=== PATIENT | male | born 1970 | race Two or more races ===

== ENCOUNTER → 2020-08-16 08:38 | Outpatient (BNVA) | payer MEDICAID, SELFPAY | PROVIDERS: PCP Family Medicine; Referring Provider Family Medicine; Visit Provider Family Medicine | DX: I48.0 Paroxysmal atrial fibrillation (principal); Z51.81 Encounter for therapeutic drug level monitoring; Z79.01 Long term (current) use of anticoagulants | CPT/HCPCS: 85610; 99211 ==

== ENCOUNTER → 2020-09-02 09:57 | Outpatient (BNVA) | payer MEDICAID, SELFPAY | PROVIDERS: PCP Family Medicine; Visit Provider Internal Medicine | DX: I48.0 Paroxysmal atrial fibrillation (principal); Z51.81 Encounter for therapeutic drug level monitoring; Z79.01 Long term (current) use of anticoagulants | CPT/HCPCS: 85610; 99211 ==

== ENCOUNTER → 2020-10-26 08:09 | Outpatient (BNVA) | payer MEDICAID, SELFPAY | PROVIDERS: PCP Family Medicine; Referring Provider Family Medicine; Visit Provider Psychiatry & Neurology Neurology | DX: Z76.89 Persons encountering health services in other specified circumstances (principal) ==

== ENCOUNTER → 2021-01-04 09:20 | Outpatient (BNVA) | payer MEDICAID, SELFPAY | PROVIDERS: PCP Family Medicine; Visit Provider Internal Medicine | DX: I48.0 Paroxysmal atrial fibrillation (principal); Z51.81 Encounter for therapeutic drug level monitoring; Z79.01 Long term (current) use of anticoagulants | CPT/HCPCS: 85610; 99211 ==

== ENCOUNTER → 2021-01-07 08:59 | Outpatient (BNVA) | payer MEDICAID, SELFPAY | PROVIDERS: PCP Family Medicine; Visit Provider Internal Medicine | DX: I48.0 Paroxysmal atrial fibrillation (principal); Z51.81 Encounter for therapeutic drug level monitoring; Z79.01 Long term (current) use of anticoagulants | CPT/HCPCS: 85610; 99211 ==

== ENCOUNTER → 2021-01-14 08:44 | Outpatient (BNVA) | payer MEDICAID, SELFPAY | PROVIDERS: PCP Family Medicine; Visit Provider Internal Medicine | DX: I48.0 Paroxysmal atrial fibrillation (principal); Z51.81 Encounter for therapeutic drug level monitoring; Z79.01 Long term (current) use of anticoagulants | CPT/HCPCS: 85610; 99211 ==

== ENCOUNTER → 2021-02-01 13:02 | Outpatient (BNVA) | payer MEDICAID, SELFPAY | PROVIDERS: PCP Family Medicine; Visit Provider Internal Medicine | DX: I48.0 Paroxysmal atrial fibrillation (principal); Z51.81 Encounter for therapeutic drug level monitoring; Z79.01 Long term (current) use of anticoagulants | CPT/HCPCS: 85610; 99211 ==

== ENCOUNTER → 2021-02-02 10:53 | Outpatient (BNVA) | payer MEDICAID, SELFPAY | PROVIDERS: PCP Family Medicine; Visit Provider Internal Medicine Endocrinology, Diabetes & Metabolism ==

== ENCOUNTER → 2021-02-21 09:46 | Outpatient (BNVA) | payer MEDICAID, SELFPAY | PROVIDERS: PCP Family Medicine; Visit Provider Internal Medicine | DX: I48.0 Paroxysmal atrial fibrillation (principal); Z79.01 Long term (current) use of anticoagulants; Z51.81 Encounter for therapeutic drug level monitoring | CPT/HCPCS: 85610; 99211 ==

== ENCOUNTER → 2021-05-10 08:38 | Outpatient (BNVA) | payer MEDICAID, SELFPAY | PROVIDERS: PCP Family Medicine; Visit Provider Internal Medicine | DX: I48.0 Paroxysmal atrial fibrillation (principal); Z51.81 Encounter for therapeutic drug level monitoring; Z79.01 Long term (current) use of anticoagulants | CPT/HCPCS: 85610; 99211 ==

== ENCOUNTER → 2021-05-12 08:28 | Outpatient (BNVA) | payer MEDICAID, SELFPAY | PROVIDERS: PCP Family Medicine; Visit Provider Internal Medicine | DX: I48.0 Paroxysmal atrial fibrillation (principal); Z51.81 Encounter for therapeutic drug level monitoring; Z79.01 Long term (current) use of anticoagulants | CPT/HCPCS: 85610; 99211 ==

== ENCOUNTER → 2021-05-30 08:15 | Outpatient (BNVA) | payer MEDICAID, SELFPAY | PROVIDERS: PCP Family Medicine; Visit Provider Internal Medicine | DX: I48.0 Paroxysmal atrial fibrillation (principal); Z51.81 Encounter for therapeutic drug level monitoring; Z79.01 Long term (current) use of anticoagulants | CPT/HCPCS: 85610; 99211 ==

== ENCOUNTER → 2021-06-14 08:13 | Outpatient (BNVA) | payer MEDICAID, SELFPAY | PROVIDERS: PCP Family Medicine; Visit Provider Internal Medicine | DX: I48.0 Paroxysmal atrial fibrillation (principal); Z51.81 Encounter for therapeutic drug level monitoring; Z79.01 Long term (current) use of anticoagulants | CPT/HCPCS: 85610; 99211 ==

== ENCOUNTER → 2021-06-24 08:13 | Outpatient (BNVA) | payer MEDICAID, SELFPAY | PROVIDERS: PCP Family Medicine; Visit Provider Internal Medicine | DX: I48.0 Paroxysmal atrial fibrillation (principal); Z79.01 Long term (current) use of anticoagulants; Z51.81 Encounter for therapeutic drug level monitoring | CPT/HCPCS: 85610; 99211 ==

== ENCOUNTER → 2021-07-08 08:35 | Outpatient (BNVA) | payer MEDICAID, SELFPAY | PROVIDERS: PCP Family Medicine; Visit Provider Internal Medicine ==

== ENCOUNTER → 2021-08-23 08:51 | Outpatient (BNVA) | payer MEDICAID, SELFPAY | PROVIDERS: PCP Family Medicine; Visit Provider Internal Medicine | DX: I48.0 Paroxysmal atrial fibrillation (principal); Z51.81 Encounter for therapeutic drug level monitoring; Z79.01 Long term (current) use of anticoagulants | CPT/HCPCS: 85610; 99211 ==

== ENCOUNTER → 2021-09-19 08:15 | Outpatient (BNVA) | payer MEDICAID, SELFPAY | PROVIDERS: PCP Family Medicine; Visit Provider Nurse Practitioner Gerontology | DX: E11.42 Type 2 diabetes mellitus with diabetic polyneuropathy (principal); E55.9 Vitamin D deficiency, unspecified; E78.5 Hyperlipidemia, unspecified; E03.9 Hypothyroidism, unspecified; I10 Essential (primary) hypertension | CPT/HCPCS: 82947; 99212 ==

== ENCOUNTER → 2021-09-20 08:35 | Outpatient (BNVA) | payer MEDICAID, SELFPAY | PROVIDERS: PCP Family Medicine; Visit Provider Internal Medicine | DX: I48.0 Paroxysmal atrial fibrillation (principal); Z51.81 Encounter for therapeutic drug level monitoring; Z79.01 Long term (current) use of anticoagulants | CPT/HCPCS: 85610; 99211 ==

== ENCOUNTER → 2021-09-27 09:13 | Outpatient (BNVA) | payer MEDICAID, SELFPAY | PROVIDERS: PCP Family Medicine; Visit Provider Internal Medicine ==

== ENCOUNTER → 2021-10-24 21:39 | Outpatient (REF) | payer MEDICAID, SELFPAY | LOC: HO.SL 21:39 | PROVIDERS: Visit Provider Family Medicine | DX: G47.33 Obstructive sleep apnea (adult) (pediatric) (principal) | CPT/HCPCS: 85610; 95810; 95811; 99211 ==

== ENCOUNTER → 2021-12-05 08:20 | Outpatient (BNVA) | payer MEDICAID, SELFPAY | PROVIDERS: PCP Family Medicine; Visit Provider Internal Medicine | DX: I48.0 Paroxysmal atrial fibrillation (principal); Z51.81 Encounter for therapeutic drug level monitoring; Z79.01 Long term (current) use of anticoagulants | CPT/HCPCS: 85610; 99211 ==

== ENCOUNTER → 2022-01-09 08:23 | Outpatient (BNVA) | payer MEDICAID, SELFPAY | PROVIDERS: PCP Family Medicine; Visit Provider Internal Medicine | DX: I48.0 Paroxysmal atrial fibrillation (principal); Z51.81 Encounter for therapeutic drug level monitoring; Z79.01 Long term (current) use of anticoagulants | CPT/HCPCS: 85610; 99211 ==

== ENCOUNTER 2022-01-12 08:20 | Outpatient (REF) | payer MEDICAID, SELFPAY | END 2022-01-12 08:21 | disposition home or self-care (01) | LOC: HO.LAB 08:20 | PROVIDERS: Absent Provider Nurse Practitioner Gerontology; PCP Family Medicine; Visit Provider Internal Medicine | DX: I48.0 Paroxysmal atrial fibrillation (principal); E55.9 Vitamin D deficiency, unspecified; Z51.81 Encounter for therapeutic drug level monitoring; Z79.01 Long term (current) use of anticoagulants | CPT/HCPCS: 36415; 82306; 85610; 99211 ==

== ENCOUNTER → 2022-01-26 08:24 | Outpatient (BNVA) | payer MEDICAID, SELFPAY | PROVIDERS: PCP Family Medicine; Visit Provider Internal Medicine | DX: I48.0 Paroxysmal atrial fibrillation (principal); Z51.81 Encounter for therapeutic drug level monitoring; Z79.01 Long term (current) use of anticoagulants | CPT/HCPCS: 85610; 99211 ==

== ENCOUNTER → 2022-02-02 08:28 | Outpatient (BNVA) | payer MEDICAID, SELFPAY | PROVIDERS: PCP Family Medicine; Visit Provider Internal Medicine | DX: I48.0 Paroxysmal atrial fibrillation (principal); Z51.81 Encounter for therapeutic drug level monitoring; Z79.01 Long term (current) use of anticoagulants | CPT/HCPCS: 85610; 99211 ==

== ENCOUNTER → 2022-02-15 08:16 | Outpatient (BNVA) | payer MEDICAID, SELFPAY | PROVIDERS: PCP Family Medicine; Visit Provider Internal Medicine | DX: I48.0 Paroxysmal atrial fibrillation (principal); Z51.81 Encounter for therapeutic drug level monitoring; Z79.01 Long term (current) use of anticoagulants | CPT/HCPCS: 85610; 99211 ==

== ENCOUNTER 2022-03-23 10:15 | Outpatient (REF) | payer MEDICAID, SELFPAY ==
--- NOTE | ~2022-03-23 | XR_ITS ---
EXAMINATION: XR FOOT, LEFT CLINICAL INFORMATION: Pain COMPARISON: Left foot x-rays 07/23/2014 TECHNIQUE: AP, lateral, and oblique views of the left foot. FINDINGS: Partially visualized hardware of the distal tibia. Bones of the midfoot are well aligned. Mild degenerative changes of the midfoot. No tarsal fracture. No metatarsal or phalangeal fracture. Mild degenerative changes of the first MTP joint with mild degenerative changes of scattered IP joints. No focal soft tissue swelling. No radiopaque foreign body. Small plantar calcaneal enthesophytes. No gross ankle joint effusion. XR/XR foot LT min 3V IMPRESSION: Mild diffuse degenerative changes of the foot. No fracture.
== END 2022-03-23 10:16 | disposition home or self-care (01) ==
LOC: HO.XRAY 10:15
PROVIDERS: Absent Provider Family Medicine; PCP Family Medicine; Visit Provider Dentist Pediatric Dentistry
DX: I48.0 Paroxysmal atrial fibrillation (principal); M79.672 Pain in left foot; Z51.81 Encounter for therapeutic drug level monitoring; Z79.01 Long term (current) use of anticoagulants
CPT/HCPCS: 73630; 85610; 99211

== ENCOUNTER → 2022-04-06 08:12 | Outpatient (BNVA) | payer MEDICAID, SELFPAY | PROVIDERS: PCP Family Medicine; Visit Provider Internal Medicine | DX: I48.0 Paroxysmal atrial fibrillation (principal); Z79.01 Long term (current) use of anticoagulants; Z51.81 Encounter for therapeutic drug level monitoring | CPT/HCPCS: 85610; 99211 ==

== ENCOUNTER 2022-06-27 08:15 | Outpatient (REF) | payer MEDICAID, SELFPAY ==
[2022-06-27 08:48] LABS: INTERNATIONAL NORM RATIO 2.5 (0.9-1.1); Prothrombin Time 29.3 SEC (10.0-13.1)
== END 2022-06-27 08:16 | disposition home or self-care (01) ==
LOC: HO.LABR 08:15
PROVIDERS: PCP Family Medicine; Visit Provider Family Medicine
DX: I48.91 Unspecified atrial fibrillation (principal)
CPT/HCPCS: 36415; 85610

== ENCOUNTER 2023-08-17 02:35 | Emergency (ER) | payer OTHER, SELFPAY ==
[2023-08-17 02:37] VITALS: BP 125/85; PULSE 85; RESP 20; TEMP 36.6; O2SAT 96; BMI 47.2
--- NOTE | 2023-08-17 03:23 | ED.GENADULT ---
HPI - General Adult General Chief complaint: General Medical Stated complaint: ?Constipated Time Seen by Provider: 08/17/23 02:56 Source: patient Mode of arrival: ambulatory Limitations: no limitations History of Present Illness HPI narrative: Patient constipated for last 1 week with small amount of stool, feels something stuck in the rectal no nausea no vomiting patient moving small amount of bowels and passing gas history of constipation off and on not on any narcotic Related Data Home Medications Medication Instructions Recorded Confirmed alcohol swabs (Alcohol Prep Pads) pad topical diabetes mellitus 06/24/21 01/09/22 lisinopril 20 mg tablet 20 mg PO DAILY 06/24/21 02/02/22 omeprazole 20 mg capsule,delayed 20 mg PO DAILY 06/24/21 02/02/22 release lancets 28 gauge (FreeStyle #100 ea 09/19/21 01/09/22 Lancets) Previous Rx's Medication Instructions Recorded warfarin 5 mg tablet 5 mg PO DAILY #90 tabs 08/16/20 levothyroxine 150 mcg tablet 150 mcg PO DAILY #30 tabs 12/20/20 atorvastatin 40 mg tablet 40 mg PO BEDTIME #30 tabs 09/19/21 blood-glucose meter (FreeStyle #1 ea 10/10/21 [place] Lite kit) blood sugar diagnostic (FreeStyle #100 ea 12/22/21 Lite Strips) cholecalciferol (vitamin D3) 50 50 mcg PO DAILY #30 caps 02/09/22 mcg (2,000 unit) capsule lancets 33 gauge (TRUEplus Lancets) #100 ea 04/24/22 empagliflozin 10 mg tablet 10 mg PO QAM #30 tabs 05/02/22 (Jardiance) metformin 500 mg tablet,extended 2,000 mg (4 x 500 mg) PO QPM 30 05/02/22 release 24 hr days #120 tabs bisacodyl 5 mg tablet,delayed 10 mg (2 x 5 mg) PO BEDTIME PRN 08/17/23 release (Dulcolax (bisacodyl)) constipation #30 tabs polyethylene glycol 3350 17 17 g PO DAILY PRN constipation 08/17/23 gram/dose oral powder (Miralax) #510 grams Allergies Allergy/AdvReac Type Severity Reaction Status Date / Time penicillin V Allergy Unknown rash Verified 08/17/23 02:40 Penicillins Allergy Unknown UNKNOWN Verified 08/17/23 02:40 Review of Systems Review of Systems: Yes all other systems are reviewed and are negative [facility] Past Medical History Medical History DM2 (diabetes mellitus, type 2) Diabetes type 2, controlled Vitamin D deficiency Acquired hypothyroidism Hepatitis B Surgical History Status post left foot surgery Family History Family History Father Cancer Mother Diabetes mellitus FH: mental illness Depression Hypertension Paternal Grandfather Diabetes mellitus Maternal Grandmother Diabetes mellitus Social History Social History Alcohol intake: current Alcohol intake frequency: holidays/special occasions only Patient Tobacco Use Status: Never used Tobacco Advance Directives: No Advance Directives Information Provided: Yes Physical Exam ED Vital Signs: Vital Signs - 24 hr 08/17/23 02:37 08/17/23 03:28 Temperature 97.9 F 97.8 F Pulse Rate 85 92 Respiratory Rate 20 Blood Pressure 125/85 141/89 H Pulse Oximetry 96 94 Oxygen Delivery Method Room Air Room Air BMI result Body Mass Index 47.2 Appearance: Alert. Oriented X3. No acute distress. ENT: Pharynx normal. Oral Mucosa moist Neck: Normal inspection. Neck supple. CVS: Normal heart rate and rhythm. Pulses normal. Respiratory: No respiratory distress. Equal air entry bilateral, Abdomen: Soft and nontender. Bowel sounds are present, no mass palpable, no CVA tenderness rectal: No stool felt in the rectum no foreign body Skin: Skin warm and dry. Normal skin color. Normal skin turgor. Neuro: Oriented X 3. Medications Administered Discontinued Medications Generic Name Dose Route Start Last Admin Trade Name Freq PRN Reason Stop Dose Admin Bisacodyl 10 mg 08/17/23 02:56 08/17/23 04:02 Bisacodyl 5 Mg Tablet.Dr PO 08/17/23 02:57 10 mg ONCE ONE Administration Magnesium Hydroxide 30 ml 08/17/23 02:56 08/17/23 04:03 Milk Of Magnesia 30 Ml Oral.Susp PO 08/17/23 02:57 30 ml ONCE ONE Administration Medical Decision Making Medical Decision Making MDM Narrative: KUB showed moderate amount of stool no signs of small-bowel obstruction discharge patient home on MiraLax and Dulcolax Differential Diagnosis Differential Diagnoses: The differential diagnosis associated with the presentation includes Fecal impaction/SBO Radiology Impression Discussion of test interpretation with radiology: I have reviewed the radiologist's reading. Discharge Plan Discharge Clinical Impression: Constipation Patient Disposition: Home, Self-Care Instructions: Constipation (ED) Additional Instructions: Drink plenty of fluids Stool softener as advised Follow with PCP as needed Prescriptions: New polyethylene glycol 3350 [Miralax] 17 gram/dose powder 17 g PO DAILY PRN (Reason: constipation) Qty: 510 0RF bisacodyl [Dulcolax (bisacodyl)] 5 mg tablet,delayed release (DR/EC) 10 mg PO BEDTIME PRN (Reason: constipation) Qty: 30 0RF No Action levothyroxine 150 mcg tablet 150 mcg PO DAILY Qty: 30 5RF (DME) blood-glucose meter [FreeStyle [place] Lite] Kit See Rx Instructions .ROUTE .MEDSUPPLY Qty: 1 0RF Rx Instructions: As directed 3x/day (DME) FreeStyle Lite Strips Strip See Rx Instructions .ROUTE .MEDSUPPLY Qty: 100 11RF Rx Instructions: 2 times a day cholecalciferol (vitamin D3) 50 mcg (2,000 unit) capsule 50 mcg PO DAILY Qty: 30 4RF (DME) lancets [TRUEplus Lancets] 33 gauge misc See Rx Instructions Not Applicable TID Qty: 100 11RF Rx Instructions: As directed twice a day metformin 500 mg tablet extended release 24 hr 2,000 mg PO QPM 30 Days Qty: 120 3RF Jardiance 10 mg tablet 10 mg PO QAM Qty: 30 3RF atorvastatin 40 mg tablet 40 mg PO BEDTIME Qty: 30 11RF warfarin 5 mg tablet 5 mg PO DAILY Qty: 90 0RF Protocol: Dose Management Condition: Sunday (Week One) Dose/Route: 10 mg Instruction: 2 x 5 mg tablets Condition: Sunday Dose/Route: 7.5 mg Instruction: 1.5 x 5 mg tablets Condition: Sunday Dose/Route: 7.5 mg Instruction: 1.5 x 5 mg tablets Condition: Sunday Dose/Route: 10 mg Instruction: 2 x 5 mg tablets Condition: Dose/Route: 2.5 mg Instruction: 0.5 x 5 mg tablets Condition: Sunday Dose/Route: 7.5 mg Instruction: 1.5 x 5 mg tablets Condition: Sunday Dose/Route: 7.5 mg Instruction: 1.5 x 5 mg tablets Condition: Sunday (Week Two) Dose/Route: 10 mg Instruction: 2 x 5 mg tablets Condition: Sunday Dose/Route: 7.5 mg Instruction: 1.5 x 5 mg tablets Condition: Sunday Dose/Route: 7.5 mg Instruction: 1.5 x 5 mg tablets Condition: Sunday Dose/Route: 7.5 mg Instruction: 1.5 x 5 mg tablets Condition: Dose/Route: 7.5 mg Instruction: 1.5 x 5 mg tablets Condition: Sunday Dose/Route: 7.5 mg Instruction: 1.5 x 5 mg tablets Condition: Sunday Dose/Route: 7.5 mg Instruction: 1.5 x 5 mg tablets Protocol Text: Adjustment Start Date: 04/06/22 INR Value: 3.6 INR Date: 04/06/22 Recheck Date: 04/20/22 Additional Instructions: take 2.5mg today then reduce weekly dose eat greens to lower inr no red fruit/orange veg for 2 days (DME) lancets [FreeStyle Lancets] 28 gauge misc See Rx Instructions .ROUTE .MEDSUPPLY Qty: 100 Rx Instructions: As directed 2 times a day alcohol swabs [Alcohol Prep Pads] Pads, Medicated topical omeprazole 20 mg capsule,delayed release(DR/EC) 20 mg PO DAILY lisinopril 20 mg tablet 20 mg PO DAILY Interventions: ED Discharge Assessment Last Done: 08/17/23 04:10 Discharge Date/Time: 08/17/23 04:10
[2023-08-17 03:28] VITALS: BP 141/89; PULSE 92; TEMP 36.6; O2SAT 94
== END 2023-08-17 04:10 | disposition home or self-care (01) ==
PROVIDERS: Emergency Provider Internal Medicine; PCP Family Medicine
DX: K59.00 Constipation, unspecified (principal); E11.9 Type 2 diabetes mellitus without complications; I10 Essential (primary) hypertension; E78.5 Hyperlipidemia, unspecified; I48.91 Unspecified atrial fibrillation; K76.0 Fatty (change of) liver, not elsewhere classified; Z79.01 Long term (current) use of anticoagulants; Z79.899 Other long term (current) drug therapy; Z79.84 Long term (current) use of oral hypoglycemic drugs
CPT/HCPCS: 74018; 99283; 99284

== ENCOUNTER 2024-04-14 08:27 | Outpatient (REF) | payer SELFPAY ==
[2024-04-14 12:04] LABS: Alanine Aminotransferase 15 U/L (0-40); Albumin Level 3.9 g/dL (3.5-5.0); Alkaline Phosphatase 113 U/L (39-117); Anion Gap 11 (12-20); Aspartate Amino Transferase 11 U/L (5-37); Bilirubin Direct 0.1 mg/dL (0.0-0.5); Bilirubin Total 0.3 mg/dL (0.0-1.0); Blood Urea Nitrogen 11 mg/dL (9-16); Calcium 9.5 mg/dL (8.4-10.2); Carbon Dioxide 28 mmol/L (22-29); Chloride 104 mmol/L (96-108); Cholesterol 138 mg/dL (<200); Estimated Glomerular Filt Rate > 60; Glucose Random 215 mg/dL (60-115); HDL Cholesterol 40 mg/dL (>40); LDL Cholesterol Calculated 74 mg/dL (<100); Potassium 4.2 mmol/L (3.3-5.1); Sodium 139 mmol/L (135-145); Total Protein 7.8 g/dL (6.5-8.0); Triglycerides 121 mg/dL (<150)
[2024-04-14 12:18] LABS: Creatinine Urine 86.13 mg/dL; Microalbum/Creatinine Ratio Ur 104.4 ug/mg cr (<30)
== END 2024-04-14 08:28 | disposition home or self-care (01) ==
LOC: HO.HHCL 08:27
PROVIDERS: Visit Provider Family Medicine
DX: E11.9 Type 2 diabetes mellitus without complications (principal); Z79.4 Long term (current) use of insulin; I10 Essential (primary) hypertension
CPT/HCPCS: 36415; 80048; 80061; 80076; 82043; 82570

== ENCOUNTER 2024-11-27 08:54 | Outpatient (REF) | payer SELFPAY ==
[2024-11-27 11:47] LABS: Creatinine Urine 62.63 mg/dL; Microalbum/Creatinine Ratio Ur 76.6 ug/mg cr (<30)
== END 2024-11-27 08:55 | disposition home or self-care (01) ==
LOC: HO.HHCL 08:54
PROVIDERS: Visit Provider Family Medicine
DX: E11.9 Type 2 diabetes mellitus without complications (principal)
CPT/HCPCS: 82043; 82570

== ENCOUNTER 2025-06-22 15:20 | Emergency (ER) | payer OTHER, SELFPAY ==
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
[2025-06-22 15:35] VITALS: BP 134/77; PULSE 74; RESP 18; TEMP 36.5; O2SAT 96; BMI 47.0
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
--- OUTSIDE RECORDS SUMMARY | 2025-06-22 19:34 | XMS_ITS | Clinical Summary ---
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 hemoglobin (Hgb A1c) (12/22/2024 1:47 PM EST) Hemoglobin A1C 15.0(A) 4.0 - 6.0 % QC Media Lot # [id number] Lot# Expiration Date ,02 6 Blood Capillary blood specimen / Unknown 12/22/2024 1:47 PM EST Shannan Tariq MD POINT OF CARE TEST ENTER/E DIT ORDERABLES Final Result * (ABNORMAL) Albumin, Random Urine W/Creatinine (11/27/2024 8:56 AM EST) Creatinine, Urine 62.63 mg/dL [facility] Microalbumin Urine 48.0 mg/L [facility] Microalbum Creatinine Ratio Ur 76.6(H) <30 ug/mg cr [facility] Comment:Albumin/Creatinine R atio Reference Ranges: Normal: < 30 ug/mg creatinine Microalbuminuria: 30 - 300 ug/mg creatinineClinical Albuminuria: > 300 ug/mg creatinine 11/27/2024 8:56 AM EST 11/27/2024 11:09 AM EST Shannan Tariq MD LAB URINE ORDERABLES Final Result [facility] [address] [place] [address] [phone] * (ABNORMAL) Lipid Panel, Standard (04/14/2024 8:28 AM EDT) Triglycerides 121 <150 mg/dL [facility] Comment:Desirable Triglyceri de: less than 150 mg/dLBorderline High Triglyceride 150-199 mg/dLHigh Triglyceride: 200-499 mg/dLVery High Triglyceride: greater than or equal to 5OO mg/dL Cholesterol 138 <200 mg/dL [facility] Comment:Desirable Cholestero l: less than 200 mg/dLBorderline High Cholesterol: 200-239 mg/dLHigh Cholesterol: greater than 239 mg/dL LDL Cholesterol Calculated 74 <100 mg/dL [facility] Comment:Desirable LDL: less than 100 mg/dLNear Optimal/Above Optimal LDL: 110- 129 mg/dLBorderline High LDL: 130-159 mg/dLHigh LDL: 160-189 mg/dLVery High LDL: greater than or equal to 190 mg/dL HDL Cholesterol 40(L) >40 mg/dL [facility] Comment:Desirable HDL: great er than 40 mg/dL Note: This HDL assay may give artificially low results in patients with liver disease. 04/14/2024 8:28 AM EDT 04/14/2024 11:16 AM EDT Shannan Tariq MD LAB BLOOD ORDERABLES Final Result Performing Organization Address City/[facility]/ZIP Co de Phone Number [facility] [address] [place] [phone] * Hepatitis C Antibody with Reflex to HCV, RNA, Quantitative, Real-Time PCR (01/03/2023 8:20 AM EST) Hepatitis C Antibody NON-REACT JASON NON-REACT JASON [facility] [place] Index 0.16 <1.00 [facility] [place] [facility] Comment: HCV antibody was non-reactive. There is no laboratory evidence of HCV infection. In most cases, no further action is required. However, if recent HCV exposure is suspected, a test for HCV RNA (test code 32208) is suggested. For additional information please refer to http://education.[employer]/faq/BFM43s1 (This link is being provided for informational/ educational purposes only.) Blood Venous blood specimen / Unknown 01/03/2023 8:20 AM EST 01/03/2023 8:22 AM EST Narrative [facility] - 01/04/2023 4:02 PM EST FASTING:YES FASTING: YES Shannan Tariq MD LAB BLOOD ORDERABLES Final Result Performing Organization Address City/[facility]/ZIP Co de Phone Number [facility] [address] [place] [address], [place] [address] [facility] [place] [facility] [address] [facility], ([address]) [place] [address] * HIV-1/2 Antigen and Antibodies, Fourth Generation, with Reflexes (01/03/2023 8:20 AM EST) Pathologist [facility] HIV Antigen/Antibody, 4th Generation NON-REAC TIVE NON-REAC TIVE [facility] [place] [facility] Comment: HIV-1 antigen and HIV-1/HIV-2 antibodies were not detected. There is no laboratory evidence of HIV infection. PLEASE NOTE: This information has been disclosed to you from records whose confidentiality may be protected by state law. If your state requires such protection, then the state law prohibits you from making any further disclosure of the information without the specific written consent of the person to whom it pertains, or as otherwise permitted by law. A general authorization for the release of medical or other information is NOT sufficient for this purpose. For additional information please refer to http://education.Quintura/faq/ROE626 (This link is being provided for informational/ educational purposes only.) The performance of this assay has not been clinically validated in patients less than 2 years old. Blood Venous blood specimen / Unknown 01/03/2023 8:20 AM EST 01/03/2023 8:22 AM EST Narrative [facility] - 01/04/2023 4:02 PM EST FASTING:YES FASTING: YES Shannan Tariq MD LAB BLOOD ORDERABLES Final Result [facility] [address], [place] [address] [facility] [place] [employer] [facility] [address] [facility], ([address]) [place] [address] from Last 3 Months or Most Recently Relevant to Health Maintenance Insurance [facility] Advance Directives Documents on File Type Date Recorded Patient All Around Patternmaker Expl anation Advance Directives and Living Will 03/05/2024 Health Care Proxy 03/05/24 Care Teams Prenatal Genetic Counselor Relationship Specialty Start Date End Date [place], MD Shannan [address] [place] [address] PCP - General Family Medicine 11/12/18 Isabel Constantino PharmD [address] [place] [address] Pharmacist Internal Medicine 10/19/22
[2025-06-22 19:46] VITALS: BP 114/69; PULSE 88; RESP 20; TEMP 35.9; O2SAT 95
[2025-06-22 20:31] VITALS: BP 114/69; PULSE 88; RESP 20; TEMP 35.9; O2SAT 95
== END 2025-06-22 20:31 | disposition home or self-care (01) ==
PROVIDERS: Emergency Provider Internal Medicine; PCP Family Medicine
DX: M25.512 Pain in left shoulder (principal); M54.50 Low back pain, unspecified; R51.9 Headache, unspecified; M54.2 Cervicalgia; I10 Essential (primary) hypertension; M77.8 Other enthesopathies, not elsewhere classified; V49.88XA Car occupant (driver) (passenger) injured in other specified transport accidents, initial encounter; Y93.89 Activity, other specified; Y92.488 Other paved roadways as the place of occurrence of the external cause; Y99.8 Other external cause status; Z79.899 Other long term (current) drug therapy
CPT/HCPCS: 70450; 72100; 72125; 73030; 99283; 99284

== ENCOUNTER → 2025-06-22 15:39 | Outpatient (BNV) | payer SELFPAY | PROVIDERS: Visit Provider Radiology Diagnostic Radiology | DX: M50.30 Other cervical disc degeneration, unspecified cervical region (principal); R51.9 Headache, unspecified; M54.50 Low back pain, unspecified; M25.512 Pain in left shoulder | CPT/HCPCS: 70450; 72100; 72125; 73030 ==

== ENCOUNTER 2025-07-21 11:53 | Outpatient (REF) | payer OTHER, SELFPAY ==
[2025-07-21 13:09] LABS: MANUAL DIFF FLAG NO
[2025-07-21 13:25] LABS: Hematocrit 43.4 % (42.0-52.0); Hemoglobin 14.2 g/dl (14.0-18.0); Imm Gran Abs Auto 0.07 X10*3/uL (0.00-0.03); Imm Gran Pct Auto 0.8 % (0.0-0.4); Lymphocytes Absolute Auto 2.7 X10*3/uL (1.2-4.9); Mean Corpuscular HGB Conc 32.7 g/dl (31.0-36.0); Mean Corpuscular Hemoglobin 26.3 pg (27.0-33.0); Mean Corpuscular Volume 80.5 fL (80.0-98.0); NRBC Abs Auto 0.000 X10*3/uL (0.0-0.012); NRBC Pct Auto 0.0 /100WBC (0.0-0.2); Platelet Count 287 X10*3/uL (160-400); Red Blood Count 5.39 X10*6/uL (4.60-5.80); White Blood Count 9.1 X10*3/uL (4.8-10.8)
[2025-07-21 13:26] LABS: Hemoglobin A1C 637.6372 umol/L; Total Hemoglobin (HGBA1C) 3670.9535 umol/L
[2025-07-21 13:59] LABS: Microalbum/Creatinine Ratio Ur 55.6 ug/mg cr (<30)
[2025-07-21 14:06] LABS: Alanine Aminotransferase 31 U/L (0-40); Albumin Level 4.1 g/dL (3.5-5.0); Alkaline Phosphatase 167 U/L (39-117); Anion Gap 12 (12-20); Aspartate Amino Transferase 33 U/L (5-37); Blood Urea Nitrogen 11 mg/dL (9-16); Calcium 8.8 mg/dL (8.4-10.2); Carbon Dioxide 26 mmol/L (22-29); Chloride 100 mmol/L (96-108); Cholesterol 156 mg/dL (<200); Estimated Glomerular Filt Rate > 60; HDL Cholesterol 38 mg/dL (>40); Potassium 4.0 mmol/L (3.3-5.1); Sodium 134 mmol/L (135-145); Total Protein 7.5 g/dL (6.5-8.0); Triglycerides 270 mg/dL (<150)
--- OUTSIDE RECORDS SUMMARY | 2025-07-21 14:23 | XMS_ITS | Encounter Summary ---
Author Organization [employer] Address [address] [facility] [address] [place] [address] Care Team Providers Care Connie Scratcher Name Role Phone Shannan Tariq MD Primary Care Provider [phone]- [phone] Isabel Constantino PharmD Unavailable [phone] Encounter Details Date Type Department Care Team ([facility] st Contact Info) Description 12/07/2023 Telephone [facility] MEDICINE [address] [place], [place] [phone] Shannan Tariq MD [address] [place], [place] [phone] Social History Tobacco Use Types Packs/Day Years Used Date Smoking Tobacco: Never Smokeless Tobacco: Current Depression Answer Date Recorded Patient Health Questionnaire-9 Score 0 12/25/2022 Housing Stability Answer Date Recorded What is your housing situation today? I have cl tee 08/29/[address] you li ve. Do you have problems with any of the following? None of the above 08/29/2023 Food Insecurity Answer Date Recorded Within the past 12 months, y ou worried that your food would run out before you got money to buy more: Never True 08/29/2023 Within the past 12 months,th e food you bought just didn't last and you didn't have enough money to get more: Never True Transportation Answer Date Recorded In the past 12 months, has l ack of transportation kept you from medical appts, meetings, work or from getting things needed for daily living? No 08/29/2023 Utilities Answer Date Recorded In the past 12 months, has t he electric, gas, oil or water company threatened to shut off services in your home? No 08/29/2023 Depression Answer Date Recorded Patient Health Questionnaire-2 Score 0 12/25/2022 Sex and Gender Information Value Date Recorded Sex Assigned at Male 09/11/2022 10:15 AM EDT Legal Sex Male 10:15 AM EDT Gender Identity Male 09/11/2022 10:15 AM EDT Sexual Orientation Straight 09/11/2022 10 :15 AM EDT documented as of this encounter Plan of Treatment Not on file documented as of this encounter Goals Goal Patient Goal Type Associated Problems Recent Progress Patient-Stated? Author Hemoglobin A1c < 7 Result Component 15(07/21/2025 12:02 PM EDT) No Isabel Constantino, PharmD documented as of this encounter Visit Diagnoses Not on filedocumented in this encounter Additional Health Concerns Assessment Noted Time PHQ-9 Depression Total Score: 0 12/25/19 23 10:28 AM EST documented as of this encounter Care Teams Connie Scratcher Relationship Specialty Start Date End Date Shannan Tariq MD [address] [place] [address] PCP - General Family Medicine 11/12/18 Isabel Constantino, PharmD [address] [place] [phone] Pharmacist Internal Medicine 10/19/22 documented as of this encounter
--- OUTSIDE RECORDS SUMMARY | 2025-07-21 14:23 | XMS_ITS | Clinical Summary ---
Author Organization [facility] Address [address] [place] [address] Phone Care Team Providers Care Statistical Technician Name Role Phone Shannan Tariq MD Primary Care Provider [phone] Allergies Active Allergy Reactions Criticality Noted Date Comments Penicillin Unknown Low 03/06/2025 Medications No known medications Active Problems No known active problems Medical History Medical History Date Comments Diabetes mellitus ([facility] [place], [facility]28) Hypertension HLD (hyperlipidemia) A-fib ([facility] [place], [facility] V28) Social History Tobacco Use Types Packs/Day Years Used Date Smoking Tobacco: Never Assessed Sex and Gender Information Value Date Recorded Sex Assigned at Male 03/06/2025 12:55 PM EDT Legal Sex Male 6:18 PM EST Gender Identity Male 03/06/2025 12:55 PM EDT Sexual Orientation Not on file Obstetrics History Last Filed Vital Signs Vital Sign Reading Time Taken Comments Blood Pressure 123/84 03/06/2025 2:48 PM EDT Pulse 65 03/06/2025 2:48 PM EDT Temperature 36.9 C (98.5 F) 03/06/2025 2:47 PM EDT Respiratory Rate 16 03/06/2025 2:47 PM EDT Oxygen Saturation 98% 03/06/2025 3:40 PM EDT Inhaled Oxygen Concentration - - Weight 141 kg (310 lb) 03/06/2025 6:11 AM EDT Height 188 cm (6' 2 ) 03/06/2025 6:11 AM EDT Body Mass Index 39.8 03/06/2025 6:11 AM EDT Plan of Treatment Health Maintenance Due Date Last Done Comments Zoster Vaccines (1 of 2) 2022 Colorectal Cancer Screening: Colonoscopy 10/25/2022 Social Influencers of Health Screening 10/25/2022 Depression Screening 11/12/2024 COVID-19 Vaccine ( season) 2025 03/05/2024, 01/27/2022, 09/05/2021, Additional history exists Influenza Vaccine (#1) 2025 , 09/20/2015, 11/02/2014, Additional history exists Hypertension/CHF/CAD Annual BMP Blood Test 03/06/2026 03/06/2025 Cholesterol Screening (Lipid Panel) 04/14/2029 04/14/2024 DTaP,Tdap,and Td Vaccines (5 - Td or Tdap) 12/22/2034 12/22/2024, 11/02/2014, 09/08/2013, Additional history exists Hepatitis B Vaccines Completed 11/02/2014, 07/05/2007, 03/13/2007 [...] on patient's age to complete this topic MMR Vaccines Aged Out No longer eligi ble based on patient's age to complete this topic Meningococcal ACWY Vaccine Aged Out N o longer eligible based on patient's age to complete this topic Meningococcal B Vaccine Aged Out No l onger eligible based on patient's age to complete this topic RSV Immunization Patients Under 20 months Aged Out No longer eligible based on patient's age to complete this topic Varicella Vaccines Aged Out No longer eligible based on patient's age to complete this topic Procedures Procedure Name Priority Date/Time Associated Diagnosis Comments COMPREHENSIVE METABOLIC PANEL STAT 03/06/2025 6:30 AM EDT from Last 3 Months or Most Recently Relevant to Health Maintenance Results * (ABNORMAL) Comprehensive metabolic panel (03/06/2025 6:30 AM EDT) Sodium 134 133 - 145 mmol/L LAB CHEMISTRY METHOD 03/06/2025 8:03 AM [facility] Potassium 4.5 3.5 - 5.5 mmol/L LAB CHEMISTRY METHOD 03/06/2025 8:03 AM [facility] Comment:Hemolysis present Chloride 102 96 - 110 mmol/L LAB CHEMISTRY METHOD 03/06/2025 8:03 AM [facility] CO2 28 21 - 32 mmol/L LAB CHEMISTRY METHOD 03/06/2025 8:03 AM [facility] Anion Gap 4 3 - 11 LAB CHEMISTRY METHOD 03/06/2025 8:03 AM [facility] Glucose 235(H) 70 - 100 mg/dL LAB CHEMISTRY METHOD 03/06/2025 8:03 AM [facility] BUN 11 5 - 25 mg/dL LAB CHEMISTRY METHOD 03/06/2025 8:03 AM [facility] Creatinine 0.68(L) 0.70 - 1.30 mg/dL LAB CHEMISTRY METHOD 03/06/2025 8:03 AM [facility] eGFR 112 >=60 mL/min/1. 73m2 LAB CHEMISTRY METHOD 03/06/2025 8:03 AM [facility] Comment:Calculation based on the Chronic Kidney Disease Epidemiology Collaboration (CKD-EPI) equation refit without adjustment for race. BUN/Creatinine Ratio 16.2 LAB CHEMISTRY METHOD 03/06/2025 8:03 AM [facility] Calcium 9.1 8.5 - 10.5 mg/dL LAB CHEMISTRY METHOD 03/06/2025 8:03 AM [facility] AST (SGOT) 25 10 - 42 unit/L LAB CHEMISTRY METHOD 03/06/2025 8:03 AM [facility] Comment:Hemolysis present ALT (SGPT) 44 10 - 60 unit/L LAB CHEMISTRY METHOD 03/06/2025 8:03 AM EDT [facility] Alkaline Phosphatase 151(H) 42 - 121 unit/L LAB CHEMISTRY METHOD 03/06/2025 8:03 AM EDT [facility] Total Protein 7.8 6.0 - 8.0 g/dL LAB CHEMISTRY METHOD 03/06/2025 8:03 AM EDT [facility] Albumin 3.4 3.2 - 5.0 g/dL LAB CHEMISTRY METHOD 03/06/2025 8:03 AM EDT [facility] Total Bilirubin 0.3 0.0 - 1.4 mg/dL LAB CHEMISTRY METHOD 03/06/2025 8:03 AM EDT [facility] Blood Venous blood specimen / Unknown Venipuncture / Unknown 03/06/2025 6:30 AM EDT 03/06/2025 7:05 AM EDT Cori Matt MD LAB BLOOD ORDERABLES Fin al Result [facility] [address] [place] [address], from Last 3 Months or Most Recently Relevant to Health Maintenance Insurance MEDICAID - [place] Care Teams Statistical Technician Relationship Specialty Start Date End Date [place], [place] Shannan [address] [place] [phone] PCP - General Family Medicine 03/06/25
--- OUTSIDE RECORDS SUMMARY | 2025-07-21 14:23 | XMS_ITS | Clinical Summary ---
Author Organization [employer] Address [address] [facility] [address] [place] [address] Care Team Providers Care Loan Approver Name Role Phone Shannan Tariq MD Primary Care Provider [phone] Isabel Constantino PharmD Unavailable [phone] Allergies Active Allergy Reactions Criticality Noted Date Comments Penicillins Hives 05/14/2013 PT REPORTS HIVES WITH PCN USE Medications * This document contains information received from the source organization and may not represent a complete record from that organization. lidocaine (Lidoderm) 5 % patchIndications :Pain APPLY 1 PATCH TOPICALLY TO SKIN, LEAVE ON FOR 12 HOURS AND OFF FOR 12 HOURS DIRECTED 30 patch 3 023 Active TRUEplus Lancets 33G miscIndications: Type 2 diabetes mellitus without complication, without long-term current use of insulin ([facility]) TEST BLOOD SUGAR FOUR TIMES DAILY 100 each 11 024 Active rivaroxaban (Xarelto) 20 MG tabletIndication s:Paroxysmal atrial fibrillation ([facility]) TAKE 1 TABLET ONCE DAILY WITH FOOD 90 tablet 3 025 Active omeprazole (PriLOSEC) [address] capsuleIndicatio ns:Chronic GERD TAKE 1 CAPSULE BY MOUTH EVERY DAY BEFORE BREAKFAST 90 capsule 3 025 Active acetone, urine, test stripIndications :Type 2 diabetes mellitus without complication, without long-term current use of insulin ([facility]) Use as directed to check for ketones in the urine if needed 100 each 11 025 Active Blood Glucose Monitoring Suppl (FreeStyle Lite) w/Device kitIndications:T ype 2 diabetes mellitus without complication, without long-term current use of insulin ([facility]) 1 each 4 times daily. 1 kit 025 Active rosuvastatin (Crestor) 40 MG tabletIndication s:Dyslipidemia Take 1 tablet (40 mg) by mouth Once per day. 90 tablet 3 025 Active levothyroxine (Synthroid, Levoxyl) 150 MCG tabletIndication s:Acquired hypothyroidism TAKE 1 TABLET BY MOUTH EVERY DAY 90 tablet 025 Active lisinopril 20 MG tabletIndication s:Primary hypertension Take 1 tablet (20 mg) by mouth Once per day. 90 tablet 3 025 Active insulin aspart (NovoLOG FLEXPEN) 100 UNIT/ML pen INJECT 14 UNITS SUBCUTANEOUSLY TWICE DAILY BEFORE BREAKFAST AND BEFORE SUPPER. DO NOT USE IF SKIPPING MEAL. 15 mL 3 025 Active TechLite Pen [place] 32G X 4 MM miscIndications: Type 2 diabetes mellitus without complication, without long-term current use of insulin ([facility]) USE DIRECTED THREE TIMES DAILY WITH INSULIN 100 each 3 025 Active Lantus SoloStar 100 UNIT/ML pen INJECT 40 UNITS SUBCUTANEOUSLY EVERY DAY 025 Active Continuous Glucose Taxation Accountant (FreeStyle Jesse 3 [place]) deviceIndication s:Type 2 diabetes mellitus without complication, without long-term current use of insulin ([facility]) 1 each Once per day. Use as directed for CGM 1 each Active Continuous Glucose Sensor (FreeStyle Jesse 3 Plus Sensor) miscIndications: Type 2 diabetes mellitus without complication, without long-term current use of insulin ([facility]) 1 each every 15 days. Apply 1 every 15 days as directed for CGM 2 each Active glucose blood (FreeStyle Precision Spencer Test) test stripIndications :Type 2 diabetes mellitus without complication, without long-term current use of insulin ([facility]) Use to test blood sugar 3 times daily in case of CGM failure or extremes of BG 100 each 025 2025 Active insulin glargine (Lantus) 100 UNIT/ML injectionIndicat ions:Type 2 diabetes mellitus without complication, without long-term current use of insulin ([facility]) Inject subcutaneously 40 units once daily 15 mL 3 025 2024 Discontinued(M ed list cleanup (will not trigger notification to Pharmacy)) Dulaglutide (Trulicity) 4.5 MG/0.5ML solution auto-injectorInd ications:Type 2 diabetes mellitus without complication, without long-term current use of insulin (CMS/HCC) Inject 4.5 mg under the skin every 7 (seven) days. 2 mL 3 025 2024 Discontinued(N on-compliance) insulin lispro (HumaLOG KWIKPEN) 100 UNIT/ML injectionIndicat ions:Type 2 diabetes mellitus without complication, without long-term current use of insulin (CMS/HCC) INJECT 18 UNITS SUBCUTANEOUSLY THREE TIMES DAILY BEFORE MEALS. DO NOT USE IF SKIPPING MEAL. 025 2024 Discontinued(M ed list cleanup (will not trigger notification to Pharmacy)) Pentips Generic Pen [place] 32G X 4 MM miscIndications: Type 2 diabetes mellitus without complication, without long-term current use of insulin (CMS/HCC) USE DIRECTED THREE TIMES DAILY WITH INSULIN 100 each 1 025 2024 Discontinued Active Problems Patient Care Coordination No te Formatting of this note migh t be different from the original. Enrolled in [facility] DM clinic with Isabel Constantino, PharmD, [facility] Problem Noted Date Diagnosed Date Flank pain 03/11/2025 Overview (03/11/2025): -seen in ER 03/06/25 CT of abdomen and pelvis with contrast: No acute abnormality or CTG explanation for flank pain. No urolithiasis or hydroureteronephrosis. Cardiac risk counseling 10/02/2024 Overview (10/02/2024): Calculated 10/02/24 Borderline risk The 10-year ASCVD risk score (Renetta DK, et al., 2019) is: 6.5% Values used [...] due after 03/05/25 -eye care facilitated by [facility] -dental home referral to [facility] 03/05/2024 -health care proxy filed 03/05/2024 Assessment & Plan (03/05/2024 10:18 AM EDT): -next physical exam due after -eye care facilitated by [facility] -dental home referral to [facility] 03/05/2024 -health care proxy given 03/05/2024 Colon [...] left foot 12/19/2022 Overview (03/05/2024): Went to [facility] and was told plantar fasciitis, but reports [...] Plan (03/05/2024 10:24 AM EDT): Went to [facility] and was told plantar fasciitis, but reports [...] contacted by [employer] or he can call [phone]. Every visit the Pt is reporting he [...] machine. -Pt referred to sleep medicine 09/03/22. [phone]. -Pt has been referred to sleep medicine [...] contacted by J[employer] or he can call [phone]. Every visit the Pt is reporting he can not sleep and that no one is telling him anything. He denies we have given him the number for the [employer], despite every visit we tell him to [...] machine. -Pt referred to sleep medicine 09/03/22. [phone]. -Pt has been referred to sleep medicine [...] contacted by [employer] or he can call [phone]. Every visit the Pt is reporting he can not sleep and that no one is telling him anything. He denies we have given him the number for the [employer], despite every visit we tell him to [...] via televisit -Patient to follow up in [facility] in 2 weeks for next steps. Assessment [...] Hypothyroidism 03/27/2013 Overview (12/22/2024): Obesity 03/27/2013 Encounters * This document contains information received from the source organization and may not represent a complete record from that organization. Date Type Department Care Team Description 07/21/2025 Telephone [facility] [address] [place] [address] [phone] Shannan Tariq MD CRITICAL LAB 07/21/2025 Telephone [facility] [address] [place] [address] [phone] Shannan Tariq MD Insurance 07/21/2025 Travel 07/08/2025 Refill [facility] [address] [place] [phone] [place] MarissaKYLE Type 2 diabetes mellitus without complication, without long-term current use of insulin ([facility]) 07/05/2025 Refill [facility] [address] [place] [phone] Isabel Constantino, Dallin Type 2 diabetes mellitus without complication, without long-term current use of insulin ([facility]) 06/12/2025 Refill [facility] [address] [place] [phone] Malina Vidal, RN 06/12/2025 Telephone [facility] [address] [place] [address] [phone] Shannan Tariq MD 05/26/2025 Telephone [facility] [address] [place] [address] [phone] Shannan Tariq MD CHART PREP from Last 3 Months Immunizations Immunization Administration [...] 02/15/2023, 04/0 04/2023, 02/15/2023, Additional history exists COVID-19 Vaccine ( season) 2025 03/05/2024, 01/27/2022, 09/05/2021, Additional history exists Influenza Vaccine (#1) 2025 , 09/20/2015, 11/02/2014, Additional history exists Alcohol/Substance Use Screening 12/15/2025 12/15/2024 Depression Screening 12/22/2025 12/22/2024, 12/22/19 25 Diabetes: Foot Exam 12/22/2025 12/22/2024, 12/22/2024, 12/22/2024 SDOH Screening 12/22/2025 12/22/2024 Tobacco Screening 12/22/2025 12/22/2024 Zoster Vaccines (1 of 2) 12/22/2025 Pos tponed from 2022 (Patient Refused) Diabetes: Hemoglobin A1C 01/18/2026 025, 07/21/2025, 12/22/2024, Additional history exists Diabetes: Urine Protein Screening 07/21/2026 07/21/2025, 11/27/2024, 04/14/2024, Additional history exists Lipid Panel 07/21/2026 07/21/2025, 06/0 01/2024, 01/03/2023, Additional history exists DTaP/Tdap/Td Vaccines (3 - Td or Tdap) [...] 15(07/21/2025 12:02 PM EDT) No Isabel Constantino, Dallin Procedures Procedure Name Priority Date/Time Associated Diagnosis Comments POCT GLYCATED HEMOGLOBIN, TOTAL Routine 07/21/2025 12:02 PM EDT Type 2 diabetes mellitus without complication, without long-term current use of insulin (CMS/HCC) TSH W/REFLEX TO FT4 Routine 07/21/2025 1 2:02 PM EDT Diabetes mellitus, type II, insulin dependent (CMS/HCC) HEMOGLOBIN A1C Routine 07/21/2025 12:02 PM EDT Diabetes mellitus, type II, insulin dependent (CMS/HCC) LIPID PANEL, STANDARD Routine 07/21/2025 12:02 PM EDT Diabetes mellitus, type II, insulin dependent (CMS/HCC) ALBUMIN, RANDOM URINE W/CREATININE Routine 07/21/2025 12:02 PM EDT Diabetes mellitus, type II, insulin dependent (CMS/HCC) BASIC METABOLIC PANEL Routine 07/21/2025 12:02 PM EDT Diabetes mellitus, type II, insulin dependent (CMS/HCC) HEPATIC FUNCTION PANEL Routine 07/21/2025 12:02 PM EDT Diabetes mellitus, type II, insulin dependent (CMS/HCC) POCT GLUCOSE Routine 07/21/2025 12:01 PM EDT Type 2 diabetes mellitus without complication, without long-term current use of insulin (CMS/HCC) CBC WITH AUTO DIFFERENTIAL Routine 07/21/2025 12:01 PM EDT Diabetes mellitus, type II, insulin dependent (CMS/HCC) HEPATITIS C AB W/REFL TO HCV RNA, QN, PCR Routine 01/03/2023 8:20 AM EST Routine screening for STI (sexually transmitted infection) HIV 1/2 ANTIGEN/ANTIBODY, FOURTH GENERATION W/RFL Routine 01/03/2023 8:20 AM EST Routine screening for STI (sexually transmitted infection) from Last 3 Months or Most Recently Relevant to Health Maintenance Results * TSH W/Reflex to FT4 (07/21/2025 12:02 PM EDT) TSH reflex Free T4 2.19 0.32 - 4.0 uIU/mL [facility] Blood Venous blood specimen / Unknown 07/21/2025 12:02 PM EDT 07/21/2025 1:04 PM EDT Shannan Tariq MD LAB BLOOD ORDERABLES Final Result Performing Organization Address [facility] de Phone Number [facility] [address] [place] [phone] * (ABNORMAL) Albumin, Random Urine W/Creatinine (07/21/2025 12:02 PM EDT) Creatinine, Urine 44.92 mg/dL [facility] Microalbumin Urine 25.0 mg/L H [facility] Microalbum Creatinine Ratio Ur 55.6(H) <30 ug/mg cr [facility] Comment:Albumin/Creatinine R atio Reference Ranges: Normal: < 30 ug/mg creatinine Microalbuminuria: 30 - 300 ug/mg creatinineClinical Albuminuria: > 300 ug/mg creatinine Urine 07/21/2025 12:0 2 PM EDT 07/21/2025 1:13 PM EDT Shannan Tariq MD LAB URINE ORDERABLES Final Result Performing Organization Address [facility] de Phone Number [facility] [address] [place] [address] [phone] * (ABNORMAL) POCT A1c (07/21/2025 12:02 PM EDT) Hemoglobin A1C 15.0(A) 4.0 - 5.7 % QC Media Lot # [id number] Lot# Expiration Date ,732,650 Blood 07/21/2025 12:0 2 PM EDT Shannan Tariq MD POINT OF CARE TEST ENTER/E DIT ORDERABLES Final Result * (ABNORMAL) Hemoglobin A1c (07/21/2025 12:02 PM EDT) Hemoglobin A1c >14.0(H) <6.0 % [facility] Comment:Hemoglobin A1C Refer ence Range Adults: 4.8 - 6.0 % Non diabetic: < 6.0 % Goal: < 7.0 %Additional Action Suggested: > 8.0 %Note: Hemoglobin A1c results are invalid for patients with abnormal amounts of HbF. Blood transfusions may impact the HbA1c concentration in the patient sample. Estimated Average Glucose TNP mg/dL [facility] Blood Venous blood specimen / Unknown 07/21/2025 12:02 PM EDT 07/21/2025 1:04 PM EDT Shannan Tariq MD LAB BLOOD ORDERABLES Final Result Performing Organization Address [facility] Co de Phone Number [facility] [address] [place] [phone] * (ABNORMAL) Hepatic Function Panel (07/21/2025 12:02 PM EDT) Bilirubin, Total 0.3 0.0 - 1.0 mg/dL [facility] Bilirubin, Direct <0.1 0.0 - 0.5 mg/dL [facility] Aspartate Amino Transferase 33 5 - 37 U/L [facility] Alanine Aminotransferase 31 0 - 40 U/L [facility] Total Protein 7.5 6.5 - 8.0 g/dL [facility] Albumin Level 4.1 3.5 - 5.0 g/dL [facility] Alkaline Phosphatase 167(H) 39 - 117 U/L [facility] Blood Venous blood specimen / Unknown 07/21/2025 12:02 PM EDT 07/21/2025 1:04 PM EDT Shannan Tariq MD LAB BLOOD ORDERABLES Final Result Performing Organization Address City/[facility] Co de Phone Number [facility] [address] [place] [address] [phone] * (ABNORMAL) Lipid Panel, Standard (07/21/2025 12:02 PM EDT) Triglycerides 270(H) <150 mg/dL [facility] Comment:Desirable Triglyceri de: less than 150 mg/dLBorderline High Triglyceride 150-199 mg/dLHigh Triglyceride: 200-499 mg/dLVery High Triglyceride: greater than or equal to 5OO mg/dL Cholesterol 156 <200 mg/dL [facility] Comment:Desirable Cholestero l: less than 200 mg/dLBorderline High Cholesterol: 200-239 mg/dLHigh Cholesterol: greater than 239 mg/dL LDL Cholesterol Calculated 64 <100 mg/dL [facility] Comment:Desirable LDL: less than 100 mg/dLNear Optimal/Above Optimal LDL: 110- 129 mg/dLBorderline High LDL: 130-159 mg/dLHigh LDL: 160-189 mg/dLVery High LDL: greater than or equal to 190 mg/dL HDL Cholesterol 38(L) >40 mg/dL [facility] Comment:Desirable HDL: great er than 40 mg/dL Note: This HDL assay may give artificially low results in patients with liver disease. Blood Venous blood specimen / Unknown 07/21/2025 12:02 PM EDT 07/21/2025 1:04 PM EDT Shannan Tariq MD LAB BLOOD ORDERABLES Final Result [facility] [address] [place] [phone] * (ABNORMAL) Basic Metabolic Panel (07/21/2025 12:02 PM EDT) Sodium 134(L) 135 - 145 mmol/L [facility] Potassium 4.0 3.3 - 5.1 mmol/L [facility] Chloride 100 96 - 108 mmol/L [facility] Carbon Dioxide 26 22 - 29 mmol/L [facility] Anion Gap 12 12 - 20 [facility] Urea Nitrogen (BUN) 11 9 - 16 mg/dL [facility] Creatinine, Serum 0.78 0.5 - 1.4 mg/dL [facility] Estimated Glomerular Filt Rate >60 [facility] Comment:Chronic Kidney Disea se: Estimated GFR < 60 mL/min/[id number] Kidney Disease: Estimated GFR < 15 mL/min/1.73m2 Glucose 372(HH) 60 - 115 mg/dL [facility] Comment:Critical value for t est(s): GLUR Results called to and readback by:KYLE Huang Person calling:RIMANJAZMYNE Date: 07/21/25Time:1405 Calcium 8.8 8.4 - 10.2 mg/dL [facility] Blood Venous blood specimen / Unknown 07/21/2025 12:02 PM EDT 07/21/2025 1:04 PM EDT us Shannan Tariq MD LAB BLOOD ORDERABLES Final Result [facility] [address] [place], [place] [phone] * (ABNORMAL) CBC auto differential (07/21/2025 12:01 PM EDT) White Blood Count 9.1 4.8 - 10.8 X10*3/uL [facility] Red Blood Count 5.39 4.60 - 5.80 X10*6/uL [facility] Hemoglobin 14.2 14.0 - 18.0 g/dl [facility] Hematocrit 43.4 42.0 - 52.0 % [facility] Mean Corpuscular Volume 80.5 80.0 - 98.0 fL [facility] Mean Corpuscular Hemoglobin 26.3(L) 27.0 - 33.0 pg [facility] Mean Corpuscular HGB Conc 32.7 31.0 - 36.0 g/dl [facility] Red Cell Distribution Width 12.7 11.0 - 16.0 % [facility] Platelet Count 287 160 - 400 X10*3/uL [facility] Mean Platelet Volume 11.1 9.4 - 12.4 fL [facility] Neutrophils Percent Auto 60.4 45 - 73 % [facility] Imm Gran Pct Auto 0.8(H) 0.0 - 0.4 % [facility] Lymphocytes Percent Auto 29.4 20 - 40 % [facility] Monocytes Percent Auto 5.8 2 - 11 % [facility] Eosinophils Percent Auto 3.1 0 - 4 % [facility] Basophils Percent Auto 0.5 0 - 2 % [facility] NRBC Pct Auto 0.0 0.0 - 0.2 /100WBC [facility] Neutrophils Absolute Auto 5.5 2.0 - 8.3 x10*3/uL [facility] Imm Gran Abs Auto 0.07(H) 0.00 - 0.03 X10*3/uL [facility] Lymphocytes Absolute Auto 2.7 1.2 - 4.9 X10*3/uL [facility] Monocytes Absolute Auto 0.5 0.1 - 1.2 X10*3/uL [facility] Eosinophils Absolute Auto 0.3 0.0 - 0.4 X10*3/uL [facility] Basophils Absolute Auto 0.1 0.0 - 0.2 X10*3/uL [facility] NRBC Abs Auto 0.000 0.0 - 0.012 X10*3/uL [facility] Blood Venous blood specimen / Unknown 07/21/2025 12:01 PM EDT 07/21/2025 1:04 PM EDT us Shannan Tariq MD LAB BLOOD ORDERABLES Final Result [facility] [address] [place] [phone] * (ABNORMAL) POCT Glucose (07/21/2025 12:01 PM EDT) [facility] Glucose Blood, POC 358(A) 60 - 200 mg/dL QC Media Lot # [id number] Lot# Expiration Date [id number] Blood Capillary blood specimen / Unknown 07/21/2025 12:01 PM EDT Result [facility] Shannan Tariq MD POINT OF CARE TEST ENTER/E DIT ORDERABLES Final Result * Hepatitis C Antibody with Reflex to HCV, RNA, Quantitative, Real-Time PCR (01/03/2023 8:20 AM EST) [facility] Hepatitis C Antibody NON-REACT JASON NON-REACT JASON [employer] [place] [facility] Index 0.16 <1.00 [employer] [place] [facility] Comment: HCV antibody was non-reactive. There is no laboratory evidence of HCV infection. In most cases, no further action is required. However, if recent HCV exposure is suspected, a test for HCV RNA (test code 75048) is suggested. For additional information please refer to http://education.FanFound/faq/LUZ75d8 (This link is being provided for informational/ educational purposes only.) Blood Venous blood specimen / Unknown 01/03/2023 8:20 AM EST 01/03/2023 8:22 AM EST Narrative [facility] 01/04/2023 4:02 PM EST FASTING:YES FASTING: YES Result [facility] Shannan Tariq MD LAB BLOOD ORDERABLES Final Result [facility] [address], [place] [address] [employer] [place] [facility] [address] [facility], ([address]) [place] [address] * HIV-1/2 Antigen and Antibodies, Fourth Generation, with Reflexes (01/03/2023 8:20 AM EST) [facility] HIV Antigen/Antibody, 4th Generation NON-REAC TIVE NON-REAC TIVE [employer] [place] [facility] Comment: HIV-1 antigen and HIV-1/HIV-2 antibodies were [...] purpose. For additional information please refer to http://education.trueAnthem.Super Vitamin D/faq/QYB166 (This link is being provided for informational/ educational purposes only.) The performance of this assay has not been clinically validated in patients less than 2 years old. Blood Venous blood specimen / Unknown 01/03/2023 8:20 AM EST 01/03/2023 8:22 AM EST Narrative [facility] - 01/04/2023 4:02 PM EST FASTING:YES FASTING: YES us Shannan Tariq MD LAB BLOOD ORDERABLES Final Result Performing Organization Address City/State/[facility] Co de Phone Number [facility] [address], [place] [address] [employer] [facility] [address] [facility], ([address]) [place] [address] from Last 3 Months or Most Recently Relevant to Health Maintenance Insurance [facility] 2 Advance Directives Documents on File Type Date Recorded Patient Photo Printer Expl anation Advance Directives and Living Will 03/05/2024 Health Care Proxy 03/05/24 Care Teams Loan Approver Relationship Specialty Start Date End Date [place], [place] Shannan [address] [place] [address] PCP - General Family Medicine 11/12/18 Isabel Constantino, PreciousD [address] [place] [address] Pharmacist Internal Medicine 10/19/22
--- OUTSIDE RECORDS SUMMARY | 2025-07-21 14:23 | XMS_ITS | Encounter Summary ---
Author Organization [employer] Address [address] [facility] [address] [place] [address] Care Team Providers Care Complex Care Nurse Practitioner Name Role Phone Shannan Tariq MD Primary Care Provider [phone]- [phone] Isabel Constantino PharmD Unavailable [phone] Encounter Details Date Type Department Care Team (Latest Contact Info) Description 07/21/2025 Travel Social History Tobacco Use Types Packs/Day Years [...] 15(07/21/2025 12:02 PM EDT) No Isabel Constantino, PreciousD documented as of this encounter Visit Diagnoses Not on filedocumented in this encounter Additional Health Concerns Assessment Noted Time PHQ-9 Depression Total Score: 0 12/22/19 25 11:27 AM EST documented as of this encounter Care Teams Complex Care Nurse Practitioner Relationship Specialty Start Date End Date Shannan Tariq MD [address] [place] [address] PCP - General Family Medicine 11/12/18 Isabel Constantino, PharmD [address] [place] [phone] Pharmacist Internal Medicine 10/19/22 documented as of this encounter
--- OUTSIDE RECORDS SUMMARY | 2025-07-21 14:23 | XMS_ITS | Encounter Summary ---
Author Organization [employer] Address [address] [facility] [address] [place] [address] Care Team Providers Care Indirect Fire Infantryman Name Role Phone Shannan Tariq MD Primary Care Provider +- [phone] Isabel Constantino PharmD Unavailable +- [phone] Reason for Visit * Reason Onset Date Comments Appointment Request 10/22/2024 Encounter Details Date Type Department Care Team ([facility] Contact Info) Description 10/22/2024 Telephone [facility] [address] [place], [place] [phone] Shannan Tariq MD [address] [place], [place] [phone] Appointment Request Social History Tobacco Use Types Packs/Day Years Used Date Smoking Tobacco: Never Smokeless Tobacco: Current Depression Answer Date Recorded Patient Health Questionnaire-9 Score 0 03/05/2024 Patient Health Questionnaire-9 Score 0 03/05/2024 Last PHQ-9: Questionnaire Data Not on file 0 03/05/2024 Housing Stability Answer Date Recorded What is your housing situation today? I have cl tee 03/05/[address] you li ve. Do you have problems with any of the following? None of the above 03/05/2024 Food Insecurity Answer Date Recorded Within the [...] Date Recorded Patient Health Questionnaire-2 Score 0 03/05/2024 Sex and Gender Information Value Date Recorded Sex Assigned at Male 09/11/2022 10:15 AM EDT Legal Sex Male 10:15 AM EDT Gender Identity Male 09/11/2022 10:15 AM EDT Sexual Orientation Straight 09/11/2022 10 :15 AM EDT documented as of this encounter Miscellaneous Notes * Telephone Encounter - Paul Allen - 10/22/2024 11:05 AM EST Tc from pt requesting to r/s appt from 09/23. Contact pt at [phone] documented in this encounter Plan of Treatment Not on file documented as of this encounter Goals Goal Patient Goal Type Associated Problems Recent Progress Patient-Stated? Author Hemoglobin A1c < 7 Result Component 15(07/21/2025 12:02 PM EDT) No Isabel Constantino, PharmD documented as of this encounter Visit Diagnoses Not on filedocumented in this encounter Additional Health Concerns Assessment Noted Time PHQ-9 Depression Total Score: 0 03/05/20 24 9:39 AM EDT documented as of this encounter Care Teams Indirect Fire Infantryman Relationship Specialty Start Date End Date Shannan Tariq MD [address] [place] [address] PCP - General Family Medicine 11/12/18 Isabel Constantino, PreciousD [address] [place] [address] Pharmacist Internal Medicine 10/19/22 documented as of this encounter
--- OUTSIDE RECORDS SUMMARY | 2025-07-21 14:23 | XMS_ITS | Encounter Summary ---
Author Organization [employer] Address [address] [facility] [address] [place] [address] Care Team Providers Care Physician Office Specialist Name Role Phone Shannan Tariq MD Primary Care Provider +- [phone] Isabel Constantino PharmD Unavailable +- [phone] Reason for Visit * Reason Onset Date Comments CRITICAL LAB 07/21/2025 Encounter Details Date Type Department Care Team ([facility] st Contact Info) Description 07/21/2025 Telephone [facility] [address] [place], [place] [phone] Shannan Tariq MD [address] [place], [place] [phone] CRITICAL LAB Social History Tobacco Use Types Packs/Day Years [...] encounter Miscellaneous Notes * Telephone Encounter - Anuja Krueger RN - 07/21/2025 2:06 PM EDT [place] [facility] with [place] Pt glucose [address] HENDRICKS aware. Nurse to route to PCP and team nurses to advise. documented in this encounter Plan of Treatment [...] documented as of this encounter Care Teams Physician Office Specialist Relationship Specialty Start Date End Date Shannan Tariq MD [address] [place] [address] PCP - General Family Medicine 11/12/18 Isabel Constantino, PreciousD [address] [place] [address] Pharmacist Internal Medicine 10/19/22 documented as of this encounter
--- OUTSIDE RECORDS SUMMARY | 2025-07-21 14:23 | XMS_ITS | Encounter Summary ---
Author Organization [employer] Address [address] [facility] [address] [place] [address] Care Team Providers Care Athletic Equipment Custodian Name Role Phone Shannan Tariq MD Primary Care Provider +- [phone] Isabel Constantino PharmD Unavailable +- [phone] Reason for Visit * Reason Onset Date Comments Insurance 07/21/2025 Encounter Details Date Type Department Care Team ([facility] st Contact Info) Description 07/21/2025 Telephone [facility] MEDICINE [address] [place], [place] [phone] Shannan Tariq MD [address] [place], [place] [phone] Insurance Social History Tobacco Use Types Packs/Day Years [...] encounter Miscellaneous Notes * Telephone Encounter - Beckylisa Valenteona - 07/21/2025 10:43 AM EDT Patient walked in for appointment. Patient was advised insurance not active. FD called insurance enrollment and they confirmed [facility] insurance is not active. Patient was asked if he has alt insurance. Patient said he switched from [employer] but didn't have ID # or insurance name information. Per insurance enrollment Patient has partial HSN for medical and dental. Patient agreed to stop and insurance enrollment on the 3rd floor and speak to them (per Patient they were the ones to help Patient make switch from [employer] to other insurance). Patient confused as to why insurance is not active. documented in this encounter Plan of Treatment [...] documented as of this encounter Care Teams Athletic Equipment Custodian Relationship Specialty Start Date End Date Shannan Tariq MD [address] [place] [phone] PCP - General Family Medicine 11/12/18 Isabel Constantino, PreciousD [address] [place] [phone] Pharmacist Internal Medicine 10/19/22 documented as of this encounter
== END 2025-07-21 11:54 | disposition home or self-care (01) ==
LOC: HO.HHCL 11:53
PROVIDERS: PCP Family Medicine; Visit Provider Family Medicine
DX: E11.9 Type 2 diabetes mellitus without complications (principal); Z79.4 Long term (current) use of insulin
CPT/HCPCS: 36415; 80048; 80061; 80076; 82043; 82570; 83036; 84443; 85025